=== PATIENT | female | born 1985 | race Hispanic/Latino ===

== ENCOUNTER → 2024-05-10 09:41 | Outpatient (REF) | payer OTHER, SELFPAY | LOC: RAD 09:41 | PROVIDERS: ATTENDING PHYSICIAN Internal Medicine Cardiovascular Disease; FAMILY PHYSICIAN Family Medicine | DX: R07.9 Chest pain, unspecified (principal); I36.1 Nonrheumatic tricuspid (valve) insufficiency; R00.2 Palpitations | CPT/HCPCS: 75574; Q9967 ==